=== PATIENT | male | born 1985 | race Hispanic/Latino ===

== ENCOUNTER 2016-11-20 02:44 | Emergency (ER) | payer OTHER ==
[2016-11-20 03:04] VITALS: BP 117/77; PULSE 74; RESP 16; TEMP 98; O2SAT 98
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
== END 2016-11-20 04:05 | disposition home or self-care (01) ==
LOC: H.ER 02:44
DX: S01.112A Laceration without foreign body of left eyelid and periocular area, initial encounter (principal); W22.8XXA Striking against or struck by other objects, initial encounter; Y92.89 Other specified places as the place of occurrence of the external cause